=== PATIENT | female | born 1965 | race Caucasian/White ===

== ENCOUNTER 2018-01-04 11:24 | Outpatient (CLI) | payer OTHER, SELFPAY ==
--- NOTE | 2018-01-04 11:12 | DI.REPORT_ITS ---
SYMPTOMS/DIAGNOSIS: LT SHOULDER INJURY LEFT SHOULDER: Three views. No acute fracture, dislocation, lytic or sclerotic lesion is seen. The glenohumeral joint appears well maintained. There are mild hypertrophic changes seen at the acromioclavicular joint. The soft tissues are unremarkable. IMPRESSION: Mild degenerative changes of the left AC joint.
== END 2018-01-04 11:25 ==
PROVIDERS: PCP Nurse Practitioner; Visit Provider Physician Assistant
DX: M25.512 Pain in left shoulder (principal); M19.012 Primary osteoarthritis, left shoulder; S49.92XA Unspecified injury of left shoulder and upper arm, initial encounter; X58.XXXA Exposure to other specified factors, initial encounter
CPT/HCPCS: 73030

== ENCOUNTER 2018-03-09 00:24 | Outpatient (CLI) | payer OTHER, SELFPAY ==
--- NOTE | 2018-03-09 09:50 | DI.REPORT_ITS ---
SYMPTOM/DIAGNOSIS: LEFT SHOULDER INJECTION. ADHESIVE CAPSULITIS LT SHOULDER M75.02 FLUOROSCOPY LEFT SHOULDER: Fluoroscopy Time: 6 sec Fluoroscopy was provided for Dr. Gonzalez while performing a shoulder injection. A single hard copy image shows a needle placed in the superior shoulder joint and injection of contrast in to the joint. Please see procedure note for details.
--- NOTE | 2018-03-09 10:03 | PROC.BLANK ---
Date of Service: 03/09/18 Time of Service: 09:30 Note: OUTPATIENT PROCEDURE NOTE Date of Procedure: March 09, 2018 Procedure: Left Shoulder Injection under Fluoroscopy Indication for Procedure: Clare has had persistent pain of the LEFT shoulder along with significant restriction in motion and a diagnosis of adhesive capsulitis. Noninvasive measures have been tried. Hopefully to treat the pain and help with her range of motion exercises, I recommended an intra-articular shoulder injection. I had discussed the risks of the procedure and the patient elected to proceed. Procedure Description: Clare was greeted in the flouroscopy room. The correct side was identified and the consent was reviewed with the patient and signed. The patient was then placed in the supine position on the fluoroscopy table. The LEFT shoulder was then prepped with Chloraprep. The anterior injection starting point was identiifed by bony landmarks and fluoroscopy. The skin and soft tissue in the tract of the injection was anesthetized with 1% Lidocaine. A spinal needle was then inserted deep into the shoulder joint at the level of the recess between the glenoid and superior humeral head. A small amount of Omnipaque solution was injected to confirm intraarticular placement. Once confirmed, the shoulder was injected with 4cc of 0.5% Bupivicaine and 80mg of Depo-Medrol. A bandaid was placed on the injection site. The patient tolerated the procedure well and noted improvement in pre-injection pain.
[2018-03-09] MEDS: Lidocaine 2% Multi-Dose 20 ML VIAL IJ (12:30)
[2018-03-09] MEDS: Omnipaque 300 MG/ML 10 ML BTL IJ (12:31)
[2018-03-09] MEDS: Bupivacaine 0.5% Pres-Free 10 ML VIAL IJ (12:32)
[2018-03-09] MEDS: methylPREDNISolone ACETATE 80 MG/ML VIAL IM (12:33)
== END 2018-03-09 00:25 ==
PROVIDERS: PCP Nurse Practitioner; Visit Provider Student in an Organized Health Care Education/Training Program
DX: M75.02 Adhesive capsulitis of left shoulder (principal)
CPT/HCPCS: 20610; 77002; J1040; J3490

== ENCOUNTER 2018-12-13 14:35 | Outpatient (CLI) | payer OTHER, SELFPAY ==
--- NOTE | 2018-12-13 14:32 | DI.RAD_ITS ---
SYMPTOM/DIAGNOSIS: RIGHT SHOULDER PAIN RIGHT SHOULDER, 12/13/18 Three views were obtained. There are moderate hypertrophic degenerative changes of the acromioclavicular joint. Small calcification is projected adjacent to the humeral head which could be associated with infraspinatus tendon. Minimal degenerative changes of the glenohumeral joint noted.
== END 2018-12-13 14:55 ==
PROVIDERS: PCP Nurse Practitioner; Visit Provider Physician Assistant Surgical
DX: M25.511 Pain in right shoulder (principal); M19.011 Primary osteoarthritis, right shoulder
CPT/HCPCS: 73030

== ENCOUNTER 2019-03-20 08:53 | Day surgery (SDC) | payer OTHER, SELFPAY ==
[2019-03-20] VITALS (7 sets, daily range): BP systolic 111–131; BP diastolic 51–93; PULSE 77–107; RESP 13–21; TEMP 36.6–37.2; O2SAT 94–96
--- NOTE | 2019-03-20 09:12 | W.PREOPHP ---
Documented by User: Hattie James 03/20/19 09:40 Assessment and Plan (1) Adhesive capsulitis of right shoulder: Current visit: Yes Status: Acute Plan: Educated patient on surgery covering surgical technique, recovery process, benefits and risks including but not limited to risk of infection, blood clot, damage to soft tissue/blood vessels/nerves in detail. After discussion patient gives verbal understanding of risks and elects to proceed with scheduling surgery. Patient had opportunity to have questions answered to her satisfaction. Patient will continue to be scheduled for right shoulder manipulation with Dr. Gonzalez on 03/20/19. History of Present Illness Narrative: Ms. Vicente is a 53-year-old bnbip-[id number] female who presents to clinic for pre-operative visit for right shoulder manipulation with Dr. Gonzalez on 03/20/19. Patient has previous history of a left shoulder injury that occurred at work in 06/30 that caused significant restricted range of motion and discomfort causing patient to have injection under fluoroscopy followed by shoulder manipulation. She has also developed right shoulder problems which she reports originated from the same work injury. She has developed worsening right shoulder pain and restricted range of motion. Although she continued to do her physical therapy exercises she did not note any improvement. She received a subacromial injection of the right shoulder on 12/13/18 which provided slight pain alleviation for several weeks and allowed her to improve her range of motion slightly. Unfortunately, she continued to have right shoulder pain that was aggravated with all range of motion. Patient has continued to treat pain by applying Voltaren gel nightly which provides significant pain relief as well as taking ibuprofen on a regular basis which helps provide some pain relief. Patient has continued to work without restrictions at [employer] but does experience discomfort with work activity. Patient denies symptoms of numbness or tingling. Patient denies additional injuries or falls. Pertinent Surgical Information Denies past medical history of: Hypertension, stroke, cardiac issues, angina, asthma, COPD, sleep apnea, renal issues, liver issues, hepatitis, gastrointestinal issues, ulcers, hyperlipidemia, bleeding disorders, seizures, migraines, anxiety, depression, diabetes, autoimmune disorders, thyroid issues Denies prior complications from surgery or anesthesia. Review of Systems Constitutional Denies fever(s), Denies frequent falls and Denies headache(s) Eyes Denies change in vision ENT Denies dizziness, Denies ear discharge, Denies headache(s), Denies epistaxis, Denies nasal discharge and Denies sore throat Cardiovascular Denies chest pain, Denies rapid heart rate, Denies irregular heart rhythm, Denies dyspnea, Denies dyspnea on exertion and Denies slow heart rate Respiratory Denies cough, Denies dyspnea, Denies dyspnea on exertion and Denies wheezing Gastrointestinal Denies abdominal pain, Denies melena, Denies hematochezia, Denies constipation, Denies diarrhea, Denies nausea and Denies vomiting Genitourinary Denies hematuria, Denies dysuria and Denies urinary urgency Musculoskeletal Reports as per HPI, Denies numbness and Denies tingling Neurologic Denies dizziness, Denies frequent falls, Denies headache(s), Denies numbness and Denies tingling Allergic/Immunologic Denies wheezing PFSH Social History Smoking/Tobacco Use Status: Former Tobacco Use Quit Date: 11/14/99 Alcohol Intake: never Drug use: Never Substance use type: does not use Do you feel safe at home: Yes Do you feel safe in your relationship?: Yes Meds Home Medications Medication Instructions Recorded Confirmed Type Vesicare 5 mg PO DAILY 04/09/17 03/20/19 History medroxyprogesterone 10 mg PO DAILY #90 tab 04/15/18 03/20/19 Rx acetaminophen [Acetaminophen Extra 1,000 mg PO Q8H PRN PRN #100 tab 04/18/18 03/20/19 Rx Strength] ibuprofen 600 mg PO Q8H PRN PRN #60 tab 04/18/18 03/20/19 Rx potassium 99 mg PO DAILY 04/18/18 03/20/19 History diclofenac 1 % topical gel 4 gm TP TID PRN #100 gm 01/15/19 03/20/19 Rx Allergies Allergy/AdvReac Type Severity Reaction Status Date / Time Penicillins Allergy Severe Anaphylaxsi Unverified 03/20/19 09:08 s Exam Const General: cooperative and no acute distress [facility] Head: normal to inspection, normocephalic and atraumatic Ears: external ears normal General nose exam: external nose normal and no nasal discharge Face and sinus: face symmetric Eyes General: appearance normal, both eyes and all related structures Resp Effort & Inspection: normal respiratory effort and able to speak in complete sentences Auscultation: clear to auscultation bilaterally, no rales, no rhonchi and no wheezes Cardio Heart Sounds: S1 normal, S2 normal and no murmurs Pulses: radial pulses present bilaterally Skin General skin exam: no rashes or lesions noted Documented by User: David Gonzalez MD 03/20/19 10:23 PFS Social History Smoking/Tobacco Use Status: Former Tobacco Use Quit Date: 11/14/99 Alcohol Intake: never Drug use: Never Substance use type: does not use Do you feel safe at home: Yes Do you feel safe in your relationship?: Yes Meds Home Medications Medication Instructions Recorded Confirmed Type Vesicare 5 mg PO DAILY 04/09/17 03/20/19 History medroxyprogesterone 10 mg PO DAILY #90 tab 04/15/18 03/20/19 Rx acetaminophen [Acetaminophen Extra 1,000 mg PO Q8H PRN PRN #100 tab 04/18/18 03/20/19 Rx Strength] ibuprofen 600 mg PO Q8H PRN PRN #60 tab 04/18/18 03/20/19 Rx potassium 99 mg PO DAILY 04/18/18 03/20/19 History diclofenac 1 % topical gel 4 gm TP TID PRN #100 gm 01/15/19 03/20/19 Rx Allergies Allergy/AdvReac Type Severity Reaction Status Date / Time Penicillins Allergy Severe Anaphylaxsi Unverified 03/20/19 09:08 s
--- NOTE | 2019-03-20 09:28 | HPE_ITS ---
Documented by User: Hattie James 03/20/19 09:40 Assessment and Plan (1) Adhesive capsulitis of right shoulder: Current visit: Yes Status: Acute Plan: Educated patient on surgery covering surgical technique, recovery process, benefits and risks including but not limited to risk of infection, blood clot, damage to soft tissue/blood vessels/nerves in detail. After discussion patient gives verbal understanding of risks and elects to proceed with scheduling surgery. Patient had opportunity to have questions answered to her satisfaction. Patient will continue to be scheduled for right shoulder manipulation with Dr. Gonzalez on 03/20/19. History of Present Illness Narrative: Ms. Vicente is a 53-year-old [id number]-kvbq-qffpsivr female who presents to clinic for pre-operative visit for right shoulder manipulation with Dr. Gonzalez on 03/20/19. Patient has previous history of a left shoulder injury that occurred at work in 06/30 that caused significant restricted range of motion and discomfort causing patient to have injection under fluoroscopy followed by shoulder manipulation. She has also developed right shoulder problems which she reports originated from the same work injury. She has developed worsening right shoulder pain and restricted range of motion. Although she continued to do her physical therapy exercises she did not note any i mprovement. She received a subacromial injection of the right shoulder on 12/13/18 which provided slight pain alleviation for several weeks and allowed her to improve her range of motion slightly. Unfortunately, she continued to have right shoulder pain that was aggravated with all range of motion. Patient has continued to treat pain by applying Voltaren gel nightly which provides significant pain relief as well as taking ibuprofen on a regular basis which helps provide some pain relief. Patient has continued to work without restrictions at [employer] but does experience discomfort with work activity. Patient denies symptoms of numbness or tingling. Patient denies additional injuries or falls. Pertinent Surgical Information Denies past medical history of: Hypertension, stroke, cardiac issues, angina, asthma, COPD, sleep apnea, renal issues, liver issues, hepatitis, gastrointestinal issues, ulcers, hyperlipidemia, bleeding disorders, seizures, migraines, anxiety, depression, diabetes, autoimmune disorders, thyroid issues Denies prior complications from surgery or anesthesia. Review of Systems Constitutional Denies fever(s), Denies frequent falls and Denies headache(s) Eyes Denies change in vision ENT Denies dizziness, Denies ear discharge, Denies headache(s), Denies epistaxis, Denies nasal discharge and Denies sore throat Cardiovascular Denies chest pain, Denies rapid heart rate, Denies irregular heart rhythm, Denies dyspnea, Denies dyspnea on exertion and Denies slow heart rate Respiratory Denies cough, Denies dyspnea, Denies dyspnea on exertion and Denies wheezing Gastrointestinal Denies abdominal pain, Denies melena, Denies hematochezia, Denies constipation, Denies diarrhea, Denies nausea and Denies vomiting Genitourinary Denies hematuria, Denies dysuria and Denies urinary urgency Musculoskeletal Reports as per HPI, Denies numbness and Denies tingling Neurologic Denies dizziness, Denies frequent falls, Denies headache(s), Denies numbness and Denies tingling Allergic/Immunologic Denies wheezing PFSH Social History Smoking/Tobacco Use Status: Former Tobacco Use Quit Date: 11/14/99 Alcohol Intake: never Drug use: Never Substance use type: does not use Do you feel safe at home: Yes Do you feel safe in your relationship?: Yes Meds Home Medications Medication Instructions Recorded Confirmed Type Vesicare 5 mg PO DAILY 04/09/17 03/20/19 History medroxyprogesterone 10 mg PO DAILY #90 tab 04/15/18 03/20/19 Rx acetaminophen [Acetaminophen Extra 1,000 mg PO Q8H PRN PRN #100 tab 04/18/18 03/20/19 Rx Strength] ibuprofen 600 mg PO Q8H PRN PRN #60 tab 04/18/18 03/20/19 Rx potassium 99 mg PO DAILY 04/18/18 03/20/19 History diclofenac 1 % topical gel 4 gm TP TID PRN #100 gm 01/15/19 03/20/19 Rx Allergies Allergy/AdvReac Type Severity Reaction Status Date / Time Penicillins Allergy Severe Anaphylaxsi Unverified 03/20/19 09:08 s Exam Const General: cooperative and no acute distress [facility] Head: normal to inspection, normocephalic and atraumatic Ears: external ears normal General nose exam: external nose normal and no nasal discharge Face and sinus: face symmetric Eyes General: appearance normal, both eyes and all related structures Resp Effort & Inspection: normal respiratory effort and able to speak in complete sentences Auscultation: clear to auscultation bilaterally, no rales, no rhonchi and no wheezes Cardio Heart Sounds: S1 normal, S2 normal and no murmurs Pulses: radial pulses present bilaterally Skin General skin exam: no rashes or lesions noted Documented by User: David Gonzalez MD 03/20/19 10:23 PFS Social History Smoking/Tobacco Use Status: Former Tobacco Use Quit Date: 11/14/99 Alcohol Intake: never Drug use: Never Substance use type: does not use Do you feel safe at home: Yes Do you feel safe in your relationship?: Yes Meds Home Medications Medication Instructions Recorded Confirmed Type Vesicare 5 mg PO DAILY 04/09/17 03/20/19 History medroxyprogesterone 10 mg PO DAILY #90 tab 04/15/18 03/20/19 Rx acetaminophen [Acetaminophen Extra 1,000 mg PO Q8H PRN PRN #100 tab 04/18/18 03/20/19 Rx Strength] ibuprofen 600 mg PO Q8H PRN PRN #60 tab 04/18/18 03/20/19 Rx potassium 99 mg PO DAILY 04/18/18 03/20/19 History diclofenac 1 % topical gel 4 gm TP TID PRN #100 gm 01/15/19 03/20/19 Rx Allergies Allergy/AdvReac Type Severity Reaction Status Date / Time Penicillins Allergy Severe Anaphylaxsi Unverified 03/20/19 09:08 s
[2019-03-20] MEDS: Lactated Ringers 1,000 ML 80 ML IV (09:30)
--- NOTE | 2019-03-20 10:24 | W.PM.DSUDISC ---
Discharge Plan Disposition Patient Disposition: HOME Condition: Good Discharge Details Reason For Visit: Right Shoulder Manipulation Attending Provider: David Gonzalez Primary Care Provider: Aletha Dumont Home Meds and New Rx's Prescriptions: Continued medroxyprogesterone 10 MG tablet 10 mg PO DAILY Qty: 90 RF: 4 diclofenac sodium [Voltaren] 1 % gel 4 gm TP TID PRN Qty: 100 RF: 3 Vesicare 5 MG tablet 5 mg PO DAILY RF: 0 potassium 99 MG tablet 99 mg PO DAILY RF: 0 acetaminophen [Acetaminophen Extra Strength] 500 MG tablet 1,000 mg PO Q8H PRN PRN (Reason: pain) Qty: 60 RF: 1 ibuprofen 600 MG tablet 600 mg PO Q8H PRN PRNQty: 60 RF: 0 Discharge Instructions Additional Instructions: Activity: You should begin moving as soon as possible. You may work on flexion but also equally maintain extension. You may bear weight as tolerated, using crutches only for support/comfort. You should apply ice to help with swelling and elevate when possible (especially in the first few days). Dressings: The bandaid may come down after 24 hours. You may shower and get the wound wet at that time. Medications: - Rarely does this require any stronger pain medications. - Recommend to take up to 1000mg of Acetaminophen (Tylenol) and 600mg of Ibuprofen (Advil) every 8 hours as needed. These larger strength tablets were called in but you also may use [id number]. - You should take oxycodone 2.5mg - 5mg every 8 hours as needed for pain. Follow-up: 7-10 days. PT this week. Referrals: David Gonzalez MD [ [facility] STAFF PHYSICIAN] - Equipment/Supplies: Sling Activity:: Activity as Tolerated Remove Dressings/Wound Care:: 24 hours Shower/Bathe:: 24 hours Diet:: As Tolerated Discharge Orders Discharge Orders: Discharge Order (Routine); Ordered 03/20/19 Ordered By: David Gonzalez DS: Diagnosis Discharge Diagnosis (1) Adhesive capsulitis of right shoulder: Status: Acute
[2019-03-20] MEDS: Bupivacaine 0.5% Pres-Free 30 ML VIAL (10:37)
[2019-03-20] MEDS: methylPREDNISolone ACETATE 80 MG/ML VIAL (10:37)
--- NOTE | 2019-03-20 10:43 | W.PM.OP ---
Date of service: 03/20/19 Time of Service: 10:43 Operative Note DATE OF PROCEDURE: 03/20/19 PRE-OP DIAGNOSIS: Right Shoulder Adhesive Capsulitis POST-OP DIAGNOSIS: same PROCEDURE: Right Shoulder Manipulation Under Anesthesia with Intraarticular Injection SURGEON: David Gonzalez ANESTHESIA: RONAN ESTIMATED BLOOD LOSS: 0 PATHOLOGY: none sent COMPLICATIONS: None Patient was transported to: PACU Patient's condition: stable Indications: Clare is a 53 year old female with adhesive capsulitis of the right shoulder. A trial of nonoperative and conservative treatment options were attempted without improvement. Given the persistence of dysfunction, I recommended a manipulation under anesthesia with injection. I discussed the risk of the procedure to include recurrence, stiffness, weakness, tendon rupture, fracture. Despite these risks, the patient elects to proceed. Findings: PREOP RANGE OF MOTION: Abduction = 60, Forward Flexion = 70, External Rotation = 20 POSTOP RANGE OF MOTION: Abduction = 160, Forward Flexion = 170, External Rotation = 80 Procedure Description: Clare was greeted in the preoperative holding area. Consent was reviewed with the patient and signed. History physical was updated. Correct site was marked. Patient was then transferred back to the operative suite. The correct site was identified and a timeout was performed for safety and per hospital protocol. A general anesthetic was administered. Intra-articular injection of the right shoulder was performed using an anterior approach and a spinal needle. I was able to inject 6 cc of 0.5% bupivacaine along with 80 mg of Depo-Medrol without difficulty. A Band-Aid was applied. Preoperative range of motion was checked and is noted in the above findings section. The manipulation was then performed in standard protocol focusing first on forward flexion, followed by abduction, followed by external rotation. This was cycled through a few times with notable crepitus and adhesion disruption both audible and palpable. Postoperative range of motion was then measured and is documented above in the findings. A simple sling was applied. Clare tolerated procedure well and was transferred back to the PACU in stable condition. Physical therapy will begin immediately and home-based exercises are provided to the patient.
[2019-03-20] MEDS: fentaNYL 100 MCG/2 ML VIAL IVP ×2 (11:00→11:05)
[2019-03-20] MEDS: oxyCODONE 5 MG TAB PO (11:33)
== END 2019-03-20 12:08 | disposition home or self-care (01) ==
PROVIDERS: PCP Nurse Practitioner; Visit Provider Student in an Organized Health Care Education/Training Program
PROC: (CPT 23700; principal; 2019-03-20 11:00)
DX: M75.01 Adhesive capsulitis of right shoulder (principal)
CPT/HCPCS: 23700; 20610; NC; J1040; J1885; J2405; J3010; L3650

== ENCOUNTER 2019-05-10 13:23 | Outpatient (REF) | payer OTHER, SELFPAY ==
[2019-05-10 21:52] LABS: Calculated LDL 110 mg/dL; Cholesterol 181 mg/dL (50-200); Glucose 107 mg/dL (70-100); HDL Cholesterol 33 mg/dL (40-60); TSH (W/Ref FT4) 1.55 uIU/mL (0.358-3.74); Triglyceride 191 mg/dL (30-150)
== END 2019-05-10 13:43 ==
LOC: NCHCN 13:23
PROVIDERS: PCP Nurse Practitioner; Visit Provider Nurse Practitioner
DX: R73.9 Hyperglycemia, unspecified (principal); Z13.89 Encounter for screening for other disorder; R63.5 Abnormal weight gain
CPT/HCPCS: 80061; 82947; 83721; 84443

== ENCOUNTER 2019-05-15 00:47 | Outpatient (CLI) | payer OTHER, SELFPAY ==
--- NOTE | 2019-05-15 16:08 | DI.MAMMO_ITS ---
SYMPTOM/DIAGNOSIS: SCREENING, Z12.39 MAMMOGRAMS: Mammograms were interpreted according to the usual protocol including computer analysis with CAD system, tomosynthesis and C view imaging. The breast tissue is of moderate radiodensity. There is no evidence of a mass. There are no suspicious calcifications and there has been no significant interval change when compared with prior images. SUMMARY: No evidence of malignancy, category 1. Yearly screening mammography is recommended. Breast density, Category B. SA ASSESSMENT OF FINDINGS: Negative. Category 1. Patient will receive a letter notifying them of these results. BI-RADS category B. There are scattered areas of fibroglandular density.
== END 2019-05-15 01:07 ==
PROVIDERS: PCP Nurse Practitioner; Visit Provider Nurse Practitioner
DX: Z12.31 Encounter for screening mammogram for malignant neoplasm of breast (principal)
CPT/HCPCS: 77063; 77067

== ENCOUNTER 2019-06-11 11:38 | Outpatient (CLI) | payer OTHER, SELFPAY | END 2019-06-11 11:58 | PROVIDERS: PCP Nurse Practitioner; Visit Provider Nurse Practitioner | DX: R73.9 Hyperglycemia, unspecified (principal) | CPT/HCPCS: 36415; 83036 ==

== ENCOUNTER 2020-05-13 16:28 | Outpatient (REF) | payer BC, SELFPAY ==
[2020-05-13 16:56] LABS: Hemoglobin A1C 5.9 % (3.8-5.6)
[2020-05-13 16:57] LABS: ALT 15 U/L (14-59); AST 16 U/L (15-37); Albumin 3.7 g/dL (3.4-5.0); Alkaline Phosphatase 98 U/L (46-116); Anion Gap 10.7 mmol/L (3-11); BUN 13 mg/dL (7-18); Bilirubin, Total 0.4 mg/dL (0.2-1.0); CO2 24.3 mmol/L (21.0-32.0); Calcium 8.6 mg/dL (8.5-10.1); Calculated LDL 151 mg/dL (<100); Chloride 105 mmol/L (98-107); Cholesterol 223 mg/dL (<200); Glucose 125 mg/dL (74-106); HDL Cholesterol 36 mg/dL (40-60); Potassium 4.2 mmol/L (3.5-5.1); Sodium 140 mmol/L (136-145); Total Protein 6.7 g/dL (6.4-8.2); Triglyceride 181 mg/dL (<150)
== END 2020-05-13 16:48 ==
LOC: NCHCN 16:28
PROVIDERS: PCP Nurse Practitioner; Visit Provider Nurse Practitioner
DX: R73.03 Prediabetes (principal); Z00.00 Encounter for general adult medical examination without abnormal findings; Z13.220 Encounter for screening for lipoid disorders
CPT/HCPCS: 80053; 80061; 83036

== ENCOUNTER 2021-05-19 13:02 | Outpatient (REF) | payer BC, SELFPAY ==
--- NOTE | 2021-05-19 12:15 | PAPFT_PTH ---
PATIENT: Clare Vicente LOC: [facility]#:[id number] AGE/SX: 55/F ROOM: RE05/19/[address]: Aletha Dumont : 1965 BED: DIS: 05/19/2021 SPEC #: [id number] RECD: 05/20/21 08:57 STATUS: MARIS REDebbie #: [id number] DAVE: 05/19/21 12:[address]: Aletha Dumont DEPT: [facility] Cytology RECD BY: Marilee Fuentes Tissues: 1 - CX/ENDOCX FOR PAP SMEARS Procedures: PAP THIN PREP/UVM Screening HPV DNA PROBE Comments: [id number]
[2021-05-19 21:56] LABS: Hemoglobin A1C 6.3 % (<5.7)
[2021-05-19 22:03] LABS: ALT 17 U/L (14-59); AST 14 U/L (15-37); Albumin 3.8 g/dL (3.4-5.0); Alkaline Phosphatase 105 U/L (46-116); Anion Gap 8.9 mmol/L (3-11); BUN 11 mg/dL (7-18); Bilirubin, Total 0.4 mg/dL (0.2-1.0); CO2 30.1 mmol/L (21.0-32.0); CREATININE 0.9 mg/dL (0.55-1.02); Calculated LDL 124 mg/dL (<100); Chloride 106 mmol/L (98-107); Cholesterol 207 mg/dL (<200); Glucose 105 mg/dL (74-106); HDL Cholesterol 37 mg/dL (40-60); Sodium 145 mmol/L (136-145); Total Protein 6.9 g/dL (6.4-8.2); Triglyceride 230 mg/dL (<150)
== END 2021-05-19 13:03 | disposition home or self-care (01) ==
LOC: NCHCN 13:02
PROVIDERS: PCP Nurse Practitioner; Visit Provider Nurse Practitioner
DX: R73.03 Prediabetes (principal); E78.5 Hyperlipidemia, unspecified; Z00.00 Encounter for general adult medical examination without abnormal findings; Z12.4 Encounter for screening for malignant neoplasm of cervix; Z11.51 Encounter for screening for human papillomavirus (HPV); R87.810 Cervical high risk human papillomavirus (HPV) DNA test positive
CPT/HCPCS: 80053; 80061; 88142; 83036; 87624

== ENCOUNTER → 2022-07-14 01:48 | Outpatient (CLI) | payer OTHER, SELFPAY ==
--- NOTE | 2022-07-14 07:50 | DI.MAMMO_ITS ---
Exam(s) MAMMO SCREENING EXAM: MAMMO SCREENING CLINICAL HISTORY: SCREENING, Z12.39. TECHNIQUE: Bilateral full field digital CC and MLO mammographic images were obtained with 3D tomosyn thesis and utilizing computer aided detection (CAD). COMPARISON: Prior mammograms were reviewed, the most recent being May 2019. This patient's mother had breast cancer diagnosed prior to age 50. FINDINGS: There has been no significant change in the appearance and distribution of the fibroglandular tissue. There are no new spiculated masses nor malignant appearing microcalcification groups. There is no significant architectural distortion nor skin thickening-retraction. IMPRESSION: No radiographic evidence of malignancy. BI-RADS Category 1 - Negative Breast Density - Category B - Scattered areas of fibroglandular density Breast density Category C or D implies that the patient has dense breast tissue. Dense breast tissue can make it harder to find cancer on a mammogram. Dense breast tissue is also associated with an incr eased risk of breast cancer. This information about the result of the mammogram report was provided to the patient to raise their awareness. Use this report when you speak with the patient about their risks for breast cancer, which includes their family history. At that time, you may recommend additional screening tests (Ultrasoun d or MRI) as these tests may add significant information. A negative radiographic report should not delay biopsy if a dominant or clinically suspicious mass is present. Up to ten percent of cancers are not identified on mammography. A negative report may reinforce clinical impression. Adenosis and dense breasts may obscure an underlying neoplasm. False positive reports average 6 to 10%. Patient will receive a letter notifying them of these results.
== END ==
PROVIDERS: PCP Nurse Practitioner; Visit Provider Nurse Practitioner Family
DX: Z12.31 Encounter for screening mammogram for malignant neoplasm of breast (principal); Z80.3 Family history of malignant neoplasm of breast
CPT/HCPCS: 77063; 77067

== ENCOUNTER 2022-08-11 10:37 | Outpatient (REF) | payer OTHER, SELFPAY ==
[2022-08-11 17:23] LABS: ALT 15 U/L (14-59); AST 12 U/L (15-37); Albumin 3.5 g/dL (3.4-5.0); Alkaline Phosphatase 110 U/L (46-116); Anion Gap 7.3 mmol/L (3-11); BUN 15 mg/dL (7-18); Bilirubin, Total 0.3 mg/dL (0.2-1.0); CO2 28.7 mmol/L (21.0-32.0); Calcium 8.6 mg/dL (8.5-10.1); Chloride 104 mmol/L (98-107); Estimated GFR 65.71 (mL/min/1.73m2); Glucose 171 mg/dL (74-106); Sodium 140 mmol/L (136-145); Total Protein 6.8 g/dL (6.4-8.2)
== END 2022-08-11 10:38 | disposition home or self-care (01) ==
LOC: NCHCN 10:37
PROVIDERS: PCP Nurse Practitioner; Visit Provider Nurse Practitioner Family
DX: B35.1 Tinea unguium (principal); R73.03 Prediabetes; E66.01 Morbid (severe) obesity due to excess calories; E78.5 Hyperlipidemia, unspecified
CPT/HCPCS: 80053

== ENCOUNTER 2022-10-05 18:29 | Outpatient (REF) | payer OTHER, SELFPAY ==
[2022-10-05 16:32] LABS: ALT 11 U/L (14-59); AST 15 U/L (15-37); Albumin 3.6 g/dL (3.4-5.0); Alkaline Phosphatase 114 U/L (46-116); Anion Gap 7.6 mmol/L (3-11); BUN 15 mg/dL (7-18); Bilirubin, Total 0.3 mg/dL (0.2-1.0); CO2 27.4 mmol/L (21.0-32.0); CREATININE 0.8 mg/dL (0.55-1.02); Chloride 103 mmol/L (98-107); Estimated GFR 85.89 (mL/min/1.73m2); Glucose 117 mg/dL (74-106); Potassium 4.3 mmol/L (3.5-5.1); Sodium 138 mmol/L (136-145); Total Protein 7.2 g/dL (6.4-8.2)
[2022-10-05 16:33] LABS: Hemoglobin A1C 6.3 % (<5.7)
== END 2022-10-05 18:30 | disposition home or self-care (01) ==
LOC: NCHCN 18:29
PROVIDERS: PCP Nurse Practitioner; Visit Provider Nurse Practitioner Family
DX: B35.1 Tinea unguium (principal); R73.03 Prediabetes; E66.01 Morbid (severe) obesity due to excess calories
CPT/HCPCS: 80053; 83036

== ENCOUNTER 2023-07-11 08:59 | Outpatient (REF) | payer OTHER, SELFPAY ==
--- NOTE | 2023-07-11 08:45 | PAPFT_PTH ---
PATIENT: Clare Vicente LOC: [facility] U#:[id number] AGE/SX: 58/F ROOM: RE07/11/[address]: Salome Moffett MD : 1965 BED: DIS: 07/11/2023 SPEC #: [id number] RECD: 07/11/23 12:55 STATUS: MARIS REDebbie #: [id number] DAVE: 07/11/23 08:[address]: Salome Moffett DEPT: [facility] Cytology RECD BY: Jessica Rodriguez ENTERED: 07/11/23 12:56 SP TYPE: PAPFT OTHR DR: Aletha Dumont Tissues: 1 - CX/ENDOCX FOR PAP SMEARS Procedures: PAP THIN PREP/UVM Screening HPV DNA PROBE Comments: [id number]
== END 2023-07-11 09:00 | disposition home or self-care (01) ==
LOC: LBN 08:59
PROVIDERS: PCP Nurse Practitioner; Visit Provider Obstetrics & Gynecology
DX: Z12.4 Encounter for screening for malignant neoplasm of cervix (principal); Z11.51 Encounter for screening for human papillomavirus (HPV)
CPT/HCPCS: 88142; 87624

== ENCOUNTER 2023-12-06 13:42 | Outpatient (REF) | payer OTHER, SELFPAY ==
[2023-12-06 15:53] LABS: Hemoglobin A1C 6.4 % (<5.7)
[2023-12-06 16:54] LABS: ALT 17 U/L (14-59); AST 14 U/L (15-37); Albumin 3.5 g/dL (3.4-5.0); Alkaline Phosphatase 116 U/L (46-116); Anion Gap 8.6 mmol/L (3-11); BUN 12 mg/dL (7-18); Bilirubin, Total 0.2 mg/dL (0.2-1.0); CO2 26.4 mmol/L (21.0-32.0); CREATININE 0.9 mg/dL (0.55-1.02); Calcium 8.4 mg/dL (8.5-10.1); Calculated LDL 106 mg/dL (<100); Chloride 105 mmol/L (98-107); Cholesterol 217 mg/dL (<200); Glucose 200 mg/dL (74-106); HDL Cholesterol 38 mg/dL (40-60); Sodium 140 mmol/L (136-145); TSH (W/Ref FT4) 1.63 uIU/mL (0.36-3.74); Total Protein 6.6 g/dL (6.4-8.2); Triglyceride 366 mg/dL (<150)
== END 2023-12-06 13:43 | disposition home or self-care (01) ==
LOC: NCHCN 13:42
PROVIDERS: PCP Nurse Practitioner Family; Visit Provider Nurse Practitioner Family
DX: E78.5 Hyperlipidemia, unspecified (principal); F41.8 Other specified anxiety disorders; R73.03 Prediabetes
CPT/HCPCS: 80053; 80061; 83036; 84443

== ENCOUNTER 2024-06-28 16:02 | Outpatient (CLI) | payer OTHER, SELFPAY ==
--- NOTE | 2024-06-28 14:07 | DI.RAD_ITS ---
Exam(s) XR HAND RT COMPLETE EXAM: XR HAND RT COMPLETE CLINICAL HISTORY: hand pain. TECHNIQUE: 2D digital imaging was performed of the right hand. Three images were obtained. AP, late ral and oblique views were obtained. COMPARISON: CR RIGHT HAND COMPLETE from 09/27/2013 FINDINGS: BONES: No acute fracture is present. No bony destructive lesion is seen. JOINTS: No dislocation present. Joint spaces are well maintained. SOFT TISSUE: Normal. IMPRESSION: Unremarkable radiographs of the right hand. DATA REPOSITORY: RADIATION DOSE DELIVERED:
--- NOTE | 2024-06-28 14:07 | DI.RAD_ITS ---
Exam(s) XR HAND LT COMPLETE EXAM: XR HAND LT COMPLETE CLINICAL HISTORY: hand pain. TECHNIQUE: 2D digital imaging was performed of the left hand. Three views were obtained. AP, later al and oblique views were obtained. COMPARISON: No exams were available for comparison FINDINGS: BONES: No acute fracture is present. No bony destructive lesion is seen. JOINTS: No dislocation present. There are mild degenerative changes seen at the hand particularly the DIP joints with joint space narrowing and osteophytes present. SOFT TISSUE: Normal. IMPRESSION: Mild degenerative changes of the left hand. DATA REPOSITORY: RADIATION DOSE DELIVERED:
== END 2024-06-28 16:03 | disposition home or self-care (01) ==
LOC: DIORS 16:03
PROVIDERS: PCP Nurse Practitioner Family; Visit Provider Physician Assistant
DX: M79.641 Pain in right hand (principal); M79.642 Pain in left hand
CPT/HCPCS: 73130

== ENCOUNTER 2024-09-07 00:13 | Outpatient (CLI) | payer OTHER, SELFPAY | END 2024-09-07 00:33 | LOC: DI 00:13 | PROVIDERS: PCP Nurse Practitioner Family; Visit Provider Nurse Practitioner Family | DX: Z12.31 Encounter for screening mammogram for malignant neoplasm of breast (principal) | CPT/HCPCS: 77063; 77067 ==

== ENCOUNTER 2024-09-07 01:45 | Outpatient (CLI) | payer OTHER, SELFPAY ==
[2024-09-07 08:07] LABS: Calculated LDL 95 mg/dL (<100); Cholesterol 168 mg/dL (<200); HDL Cholesterol 43 mg/dL (40-60); Triglyceride 151 mg/dL (<150)
== END 2024-09-07 01:46 | disposition home or self-care (01) ==
LOC: LBO 01:45
PROVIDERS: PCP Nurse Practitioner Family; Referring Provider Nurse Practitioner Family; Visit Provider Nurse Practitioner Family
DX: E78.5 Hyperlipidemia, unspecified (principal); R73.09 Other abnormal glucose
CPT/HCPCS: 36415; 80061; 83036